=== PATIENT | female | born 1980 | race African-American/Black ===

== ENCOUNTER 2017-01-30 22:52 | Emergency (ER) | payer OTHER ==
[2017-01-30 23:21] VITALS: BP 127/77
--- NOTE | 2017-01-30 23:24 | ED Physician Documentation ---
Female Urogenital Problems - HISTORIAN Historian: patient - HPI Stated Complaint: Heavy vaginal bleeding and pain Chief Complaint: General Adult Onset: days ago Severity: mild (cramping) Further Comments: yes (About 10 days ago had a light menstrual period that lasted for about 5 days. Stopped for 3 days. # days ago started again and has been heavy bleeding with clots. Has using aobut 12 pads a day. Has started to feel funny at this time. Has had unprotected sex, not sure if she is or not. Patient states that she has noticed an abcess forming in the left labial area. She has had these before and has had to have them drained.) - Vaginal Bleeding Compared to Menstrual Periods: heavier Description of Menstrual: abnormal period(s) Sexual History: active Contraceptive: none - Associated Symptoms Urinary Symptoms: none - ROS CONST: none. denies: fever, chills GI/: nausea, diarrhea. denies: vomiting NEURO/PSYCH: none - PAST HX Past History: none Other History: denies: HIV Surgeries/Procedures: cholecystectomy, tonsillectomy Immunizations: referred to PCP Allergies/Adverse Reactions: Allergies Allergy/AdvReac Type Severity Reaction Status Date / Time No Known Allergies Allergy Verified 01/30/17 23:21 Home Medications: Ambulatory Orders Medication Instructions Recorded Cephalexin [Keflex] 500 mg PO TID #21 capsule 01/31/17 - SOCIAL HX Smoking History: greater than 1 pack/day (1/2-1 ppd) Alcohol Use: none Drug Use: none, marijuana (occasional) - FAMILY HX Family History: none - VITAL SIGNS Vital Signs: Vital Signs Temp Pulse Resp BP Pulse Ox 105 H 16 127/77 100 01/30/17 22:55 01/30/17 22:55 01/30/17 22:55 01/30/17 22:55 - REVIEWED ASSESSMENTS Nursing Assessment Reviewed: Yes Vitals Reviewed: Yes Progress - Progress Progress: After labial lesion was prepped and lidocaine was injected patient refused to have lesion lanced and drained. Patient was offered hormonal therapy for abnormal bleeding but refused to take it. Female Urogenital Problems - EXAM General Appearance: alert, mild distress Respiratory: no resp. distress, breath sounds nml. No: wheezes, rales, rhonchi CVS: reg rate & rhythm, heart sounds normal, equal pulses, no gallop, irregularly irregular rhy Abdomen: soft, non-tender, no organomegaly, no distention, nml bowel sounds, tenderness (in the suprapubic area) Pelvic: speculum exam nml, active bleeding, moderate, bimanual exam nml. No: external exam nml (2.5 cm cystic lesion to the right superior labial area. Area was cleansed with betadine, anesthesia obtained with 1% xylocain. After xylocaine was injected patient refused to go any further with the procedure to I &D lesion. Was advised that lesion could become bigger and more infected. Patient refused any further surgical procedure for it. ), blood clots in vault, cerv.motion tenderness, cervical dilation, adnexal tenderness (R), adnexal tenderness (L), enlarged uterus Back: non-tender Skin: color nml, no rash, warm,dry Neuro: oriented X3, mood/affect nml, cognition normal Discharge Clincal Impression: Abnormal menstruation, Elevated serum creatinine, Labial abscess Referrals: Primary Doctor,No [Primary Care Provider] - 2 Days Additional Instructions: If you continue to have heavy menstrual flow over the next 2-3 days to be reevaluated. You may want to consider hormone therapy that you refused in the ED if you continue to have problems. Make sure that you are drinking a lot of fluids, drink enough until your urine is a light yellow color. Sit in sitz bath for 30 minutes several times a day. Take Cephalexin for abscess as directed. Have your kidney functions rechecked in 2-4 weeks to make sure they return to normal. Condition: Stable Disposition: 01 HOME, SELF-CARE Decision to Admit: NO Date of Decison to Admit: 01/31/17 Decision Time: 00:19
[2017-01-30 23:49] LABS: BASOPHILS % 0.3 (0.0-1.5); EOSINOPHILS % 2.4 % (0.0-6.8); MEAN CORPUSCULAR HEMOGLOBIN 30.6 pg (28.0-34.0); MEAN CORPUSCULAR VOLUME 94.5 fl (80.0-100.0); MONOCYTES % 3.7 % (0.0-11.0); NEUTROPHILS # 5.6 # k/uL (1.4-7.7)
[2017-01-30] MEDS ORDERED: Lidocaine 1% 5ml(IM or SUTURE)(PAIN CLINIC) ONE (23:57)
[2017-01-30] MEDS ORDERED: Lidocaine 1% 5ml(IM or SUTURE)(PAIN CLINIC) IJ ONE (23:57)
[2017-01-30 23:58] LABS: eGFR (African) > 60; eGFR (Non-African) > 60
[2017-01-31] MEDS ORDERED: CEPHALEXIN 250 MG CAPSULE PO ONE (00:24)
[2017-01-31 05:19] LABS: APPEARANCE,URINE CLEAR (CLEAR); COLOR,URINE RED (YELLOW)
[2017-01-31 05:20] LABS: OCCULT BLOOD,URINE 3+ (NEGATIVE); URINE HCG NEGATIVE (NEGATIVE); UROBILINOGEN URINE 0.2 Eu (0.2-1.0)
== END 2017-01-31 00:40 | disposition home or self-care (01) ==
LOC: ED 22:52
DX: N92.0 Excessive and frequent menstruation with regular cycle (principal); N76.4 Abscess of vulva; R79.89 Other specified abnormal findings of blood chemistry
CPT/HCPCS: 80053; 81002; 81025; 85025; 99283; S1016